=== PATIENT | female | born 1955 | race African-American/Black ===

== ENCOUNTER 2016-11-28 17:51 | Observation (INO) | payer MEDICARE, OTHER ==
--- NOTE | 2016-11-28 18:16 | ER Document Report ---
ED Allergic Reaction <LUIS EDUARDO HARRISON - Last Filed: 11/29/16 01:04> - General Mode of Arrival: Medic Information source: Patient, Emergency Med Personnel TRAVEL OUTSIDE OF THE [place] IN LAST 30 DAYS: No - HPI Onset: This afternoon Similar symptoms previously: Yes Recently seen / treated by doctor: No <DEVON MARTIN - Last Filed: 11/29/16 01:07> - General Chief Complaint: Allergic Reaction Stated Complaint: POSSIBLE ALLERGIC REACTION Time Seen by Provider: 11/28/16 18:05 Notes: Patient is a 61 year old female presenting to the emergency department for a possible allergic reaction. Patient has angioedema that was onset around 14:45 today. Patient was brought from Urgent care to the emergency department via EMS. Patient states that this has happened to her before. Patient complains of some pain to her mouth due to the swelling. Patient denies any throat swelling but states she feels like she is having some difficulty breathing. Patient has a history of autism and schizophrenia and nurse reports that the patient's speech is at baseline. Nurse reports the patient had this reaction previously from a schizophrenia medication. Patient denies having to be intubated or receive a tracheostomy from this reaction previously. Patient is a poor historian. According to the nurse the patient's symptoms have improved within the past 20 minutes since the patient arrived from EMS. Patient was at urgent care earlier today for her symptoms and received 0.5 epi IM, 25 mg Benadryl IM, and 10 mg Decadron IM. Patient additionally received 25 mg Benadryl and 20 mg Famotidine. Patient has caregivers that are on their way to the emergency department. Patient states she has no known allergies. (DEVON MARTIN) - Related Data Allergies/Adverse Reactions: No Known Allergies Allergy (Verified 06/03/14 10:32) Past Medical History - General Information source: [facility] Records - Social History Smoking Status: Never Smoker Cigarette use (# per day): No Chew tobacco use (# tins/day): No Smoking Education Provided: No Frequency of alcohol use: None Drug Abuse: None Family History: None Patient has suicidal ideation: No Patient has homicidal ideation: No - Past Medical History Cardiac Medical History: Reports: Hx Hypertension GI Medical History: Reports: Hx Gastroesophageal Reflux Disease, Hx Hepatitis - C Psychiatric Medical History: Reports: Hx Bipolar Disorder, Hx Depression, Hx Schizophrenia, Other - autism Infectious Medical History: Reports: Hx Hepatitis - C Past Surgical History: Reports: Hx Hysterectomy - Immunizations Hx Diphtheria, Pertussis, Tetanus Vaccination: Yes <DEVON MARTIN - Last Filed: 11/29/16 01:07> Review of Systems - Review of Systems EENT: See HPI, Other - facial edema. denies: Throat swelling Cardiovascular: denies: Chest pain Respiratory: denies: Short of breath Gastrointestinal: denies: Abdominal pain Musculoskeletal: See HPI Skin: See HPI Neurological/Psychological: See HPI <DEVON MARTIN - Last Filed: 11/29/16 01:07> Physical Exam <LUIS EDUARDO HARRISON - Last Filed: 11/29/16 01:04> <DEVON MARTIN - Last Filed: 11/29/16 01:07> - Vital signs Vitals: Resp 25 H 11/28/16 17:56 - Notes Notes: GENERAL: Alert, interacts well, pleasant, poor historian. Mild distress. HEAD: Normocephalic, atraumatic. EYES: Pupils equal, round, and reactive to light. Extraocular movements intact. Mild swelling under the eyes but none above the eyes. ENT: Oral mucosa moist, tongue midline, no swelling to the tongue or soft palate. Gross swelling of the lips, lower is worse than the upper lip. Nose has swelling. No evidence of airway obstruction. NECK: Full range of motion. Supple. Trachea midline. LUNGS: Clear to auscultation bilaterally, no wheezes, rales, or rhonchi. No respiratory distress. HEART: Regular rate and rhythm. No murmurs, gallops, or rubs. ABDOMEN: Soft, non-tender. Non-distended. Bowel sounds present in all 4 quadrants. EXTREMITIES: Moves all 4 extremities spontaneously. No edema. No cyanosis. NEUROLOGICAL: Alert. Normal speech. PSYCH: Normal affect, normal mood. SKIN: Warm, dry, normal turgor. (DEVON MARTIN) Course - Laboratory Result Diagrams: 11/28/16 21:48 11/28/16 21:48 <LUIS EDUARDO HARRISON - Last Filed: 11/29/16 01:04> - Laboratory Result Diagrams: 11/28/16 21:48 11/28/16 21:48 - Consults Dr. Acosta Time consulted: 20:15 <DEVON MARTIN - Last Filed: 11/29/16 01:07> - Re-evaluation Re-evalutation: 11/29/16 01:04 Dr. Acosta has now evaluated the patient agrees to accept the patient as an observation to his service in the [facility]. (LUIS EDUARDO HARRISON) 11/28/16 19:45 Re-evaluated patient at this time. Patient's upper lip is more swollen than previously during initial exam. Patient's caretakers state the patient appears to be much better than previously. They believe that this swelling is caused by the patient's fluphenazine injection she received last week. They state that when she had this reaction previously it took almost 1 week for the symptoms to be completely gone. 11/28/16 23:30 Re-evaluated patient at this time. Upper lip swelling has decreased and there is still no tongue swelling. (DEVON MARTIN) - Vital Signs Vital signs: Temp Pulse Resp BP Pulse Ox 97.9 F 77 20 163/89 H 97 11/28/16 23:05 11/28/16 18:03 11/28/16 23:16 11/28/16 23:16 11/28/16 23:16 - Laboratory Laboratory results interpreted by me: 11/28/16 11/28/16 21:48 21:48 Hgb 11.4 L Hct 33.4 L Seg Neutrophils % 92.3 H Lymphocytes % 6.7 L Monocytes % 0.8 L Absolute Lymphocytes 0.4 L Glucose 120 H - Consults Dr. Acosta Reason for consultation: 11/28/16 20:[address] Acosta for admission. 11/28/16 20:[address] Acosta, he is aware that this patient needs to be admitted but he will call back for details since he is working on admitting 2 critical patients at the moment. 11/28/16 23:[address] Acosta again for possible admission, he will call back. 11/28/16 23:[address] Acosta, he will come and evaluate the patient. There are currently no ICU beds and the patient may need transport if her condition worsens. 11/29/16 01:00 Dr. Acosta evaluated the patient and requests to admit the patient to [facility] observation. (DEVON MARTIN) Critical Care Note - Critical Care Note Total time excluding time spent on procedures (mins): 45 <LUIS EDUARDO HARRISON - Last Filed: 11/29/16 01:04> Discharge - Discharge [facility] Unit Admitted: IMCU <LUIS EDUARDO HARRISON - Last Filed: 11/29/16 01:04> <DEVON MARTIN - Last Filed: 11/29/16 01:07> - Discharge Clinical Impression: Autism Angioedema of lips Qualifiers: Encounter type: initial encounter Qualified Code(s): T78.3XXA - Angioneurotic edema, initial encounter Hypertension Qualifiers: Hypertension type: essential hypertension Qualified Code(s): I10 - Essential ( primary) hypertension Schizophrenia Qualifiers: Schizophrenia type: unspecified Qualified Code(s): F20.9 - Schizophrenia, unspecified Disposition: ADMITTED OBSERVATION Referrals: MARK KHAN MD [Primary Care Provider] - Follow up as needed Scribe Attestation: 11/29/16 01:06 I personally performed the services described in the documentation, reviewed and edited the documentation which was dictated to the scribe in my presence, and it accurately records my words and actions. (LUIS EDUARDO HARRISON) Scribe Documentation - Scribe Written by Domenico:: Domenico Collins 11/28/2016 18:44 acting as scribe for :: Noel <DEVON MARTIN - Last Filed: 11/29/16 01:07>
[2016-11-28] MEDS ORDERED: NORMAL SALINE 250 ML IV PRN (18:45)
[2016-11-28] MEDS ORDERED: DIPHENHYDRAMINE HCL 50 MG/ML VIAL IV ONE (20:14)
[2016-11-28] MEDS ORDERED: METHYLPREDNISOLONE INJ 125 MG/2 ML SDV IV ONE (20:15)
[2016-11-28 21:58] LABS: ABSOLUTE LYMPHOCYTES (AUTO) 0.4 10^3/uL (0.5-4.7); ABSOLUTE MONOCYTES (AUTO) 0.1 10^3/uL (0.1-1.4); BASOPHILS % (AUTO) 0.2 % (0-2); HEMATOCRIT 33.4 % (36.0-47.0); HEMOGLOBIN 11.4 g/dL (12.0-15.5); HGB HCT DIFFERENCE 0.8; LYMPHOCYTES % (AUTO) 6.7 % (13-45); MEAN CORPUSCULAR HEMOGLOBIN 30.8 pg (27.0-33.4); MEAN CORPUSCULAR HGB CONC 34.3 g/dL (32.0-36.0); MEAN CORPUSCULAR VOLUME 90 fl (80-97); MONOCYTES % (AUTO) 0.8 % (3-13); RED BLOOD COUNT 3.72 10^6/uL (3.72-5.28); RED CELL DISTRIBUTION WIDTH 13.4 % (11.5-14.0); SEGMENTED NEUTROPHILS % (AUTO) 92.3 % (42-78); WHITE BLOOD COUNT 6.5 10^3/uL (4.0-10.5)
[2016-11-28 22:15] LABS: ALANINE AMINOTRANSFERASE 32 U/L (9-52); ALBUMIN 3.8 g/dL (3.5-5.0); ALKALINE PHOSPHATASE 75 U/L (38-126); ANION GAP 10 (5-19); ASPARTATE AMINO TRANSFERASE 35 U/L (14-36); BILIRUBIN,DIRECT 0.4 mg/dL (0.0-0.4); BILIRUBIN,TOTAL 0.4 mg/dL (0.2-1.3); BLOOD UREA NITROGEN 12 mg/dL (7-20); CALCIUM 9.4 mg/dL (8.4-10.2); CARBON DIOXIDE 27 mmol/L (22-30); CHLORIDE 102 mmol/L (98-107); CREATININE RESULT 0.83 mg/dL (0.52-1.25); GLUCOSE 120 mg/dL (75-110); POTASSIUM 3.8 mmol/L (3.6-5.0); SODIUM 139.4 mmol/L (137-145); TOTAL PROTEIN 7.2 g/dL (6.3-8.2)
[2016-11-29] MEDS ORDERED: GLUCAGON,HUMAN RECOMB 1 MG INJ IM PRN (01:26)
[2016-11-29] MEDS ORDERED: DEXTROSE 50%-WATER 25 GM/50 ML DISP.SYRIN IV PRN ×2 (01:26)
[2016-11-29] MEDS ORDERED: ACETAMINOPHEN 325 MG TABLET PO PRN (01:26)
[2016-11-29] MEDS ORDERED: DEXTROSE 40% GEL 15 GM TUBE PO PRN ×2 (01:26)
[2016-11-29] MEDS ORDERED: PROMETHAZINE HCL INJ 25 MG/1 ML VIAL IV PRN (01:33)
--- NOTE | 2016-11-29 01:57 | PDOC H&P ---
History of Present Illness Admission Date/PCP: 11/29/16 01:16 MARK KHAN MD Patient complains of: Swelling of lips History of Present Illness: RIDDHI FORTUNE is a 61 year old -[place] female with reportedly underlying hypertension, functioning autism, bipolar disorder, schizophrenia, and hepatitis C who presents to the emergency room for above complaint. Patient has been discussed with emergency room physician who evaluated the patient. Patient is pleasant and cooperative, mildly anxious, but is able to provide no history whatsoever in terms of acute or chronic events, review of systems, personal habits, family history, etc. No friends or family are present. No old inpatient records available for review. 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 According to emergency room records, shortly before 3 PM on the , patient was observed to have swelling of her lips. Was complaining at that time of some pain in her mouth due to the swelling, but now denies any pain. Also was complaining of some difficulty breathing at that time. Was taken to a local urgent care center, given medications there, and transported by EMS to our emergency room. This is reportedly her second episode of angioedema, with the first episode felt secondary to her fluphenazine; last dose was reportedly approximately a week ago. Initially some slight decrease in swelling of her upper lip along with resolution of her very mild periorbital edema, with subsequent slight recurrence of mild upper lip swelling. No change in the lower lip swelling. No difficulty swallowing or respiratory distress. No tongue or other intraoral swelling. According to emergency room nurse Alondra, who has been taking care of the patient tonight, the very mild periorbital edema has resolved, with some decrease in upper lip swelling and again no change in lower lip swelling. Please refer to ER notes concerning medications given in urgent care, by EMS, and here in our emergency room. Dictation via voice recognition software. Laboratory results are listed in [facility] and are reviewed. 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 No further information available this point in time. No known drug allergies. Home medications initially autopopulated into [facility] [employer] may not accurately reflect patient's true medications, dosages, and/or frequencies. mammography technologist to reconcile medications. Unfortunately, patient not able to provide any information relating to medications/dosages/frequencies. REVIEW OF SYSTEMS: See history and present illness. No further information available this point in time. PHYSICAL EXAMINATION: 65.6 kg. Height is not recorded on the chart. Blood pressure 154/81. Pulse 66 and regular. 98% saturation on room air. Respirations are 20 and unlabored. Temperature 97.9. Well-nourished well-developed -[place] female who appears a fair number of years younger than her stated age. Pleasant awake alert and cooperative. Mildly anxious, without agitation. Her emergency room nurse Alondra is present. Skin is warm and dry. No grossly obvious evidence of rash in areas of skin examined. No subcutaneous nodules palpated. ENT: Hearing grossly normal to normal conversation. Tongue midline on protrusion pink and slightly moist. No evidence of swelling of tongue or intraoral cavity, including posterior pharynx. No difficulty swallowing saliva. Mild swelling of her upper lip, a bit more moderate with the lower lip. See comments in history of present illness concerning changes noted by ER staff. Eyes: No scleral icterus. Pupils equal and reactive to light at 5 mm. Franquez conjunctivae. Perhaps very scant right lateral periorbital edema; otherwise, none noted. Neck is supple and nontender to gentle active range of motion and palpation. Midline trachea. No palpable thyroid nodule mass enlargement or tenderness. Lymphatic: No palpable cervical or clavicular nodes. Neck and lymphatic exams limited by patient body habitus. Psychiatric: Cannot be adequately evaluated due to her status; See history and present illness. Lungs: Auscultation reveals clear and equal breath sounds bilaterally. No use of accessory respiratory muscles. Cardiovascular: Heart regular rate and rhythm, without gallop murmur or rub. No carotid or abdominal aortic bruits. No ankle or pedal edema. Palpable dorsalis pedis pulses. Abdomen:soft slightly distended nontender with positive bowel sounds. Unable to adequately evaluate abdomen for masses or organomegaly due to distention. Extremities: Feet are warm and dry. No calf tenderness to compression. No grossly obvious visual evidence of calf swelling. Gentle manipulation of lower extremities fails to reveal any obvious evidence of injury or instability to knees hips or ankles. Neurologic: Moves upper extremities grossly normally. Patellar reflexes absent. Absent Babinski. Light touch can't be adequately evaluated due to her mental status. Dorsiflexion and plantarflexion of feet 5 / 5 and symmetric. Past Medical History Past Medical History: Information from ER staff and current records; patient cannot provide any information herself. Cardiac Medical History: Reports: Hypertension GI Medical History: Reports: Gastroesophageal Reflux Disease Psychiatric Medical History: Reports: Bipolar Disorder, Depression, Other - autism; schizophrenia Infectious Medical History: Reports: Hepatitis C Past Surgical History Past Surgical History: Information from ER staff and current records; patient cannot provide any information herself. Past Surgical History: Reports: Hysterectomy Social History Information Source: Emergency Med Personnel, [facility] Records Smoking Status: Unknown if Ever Smoked - Advance Directive Resuscitation Status: Full Code Surrogate healthcare decision maker:: Uncertain at this time; possibly her guardian Family History Family History: None Parental Family History Reviewed: No - Patient cannot provide any information related to same. Children Family History Reviewed: No - Patient cannot provide any information related to same. Sibling(s) Family History Reviewed.: No - Patient cannot provide any information related to same. Medication/Allergy Home Medications: Benztropine Mesylate [Benztropine Mesylate 2 mg Tablet] 2 mg PO Q12 11/29/16 Citalopram Hydrobromide [Celexa 20 mg Tablet] 40 mg PO DAILY 11/29/16 Fluphenazine HCl 5 mg PO Q12 11/29/16 Omeprazole 40 mg PO DAILY 11/29/16 Diphenhydramine HCl [Benadryl] 25 mg PO Q6H PRN #30 capsule 11/30/16 Methylprednisolone [Medrol Dosepack (4 mg/Tab) 21 Tab/Dosepak] 4 mg PO ASDIR PRN #21 tab.ds.pk 11/30/16 Allergies/Adverse Reactions: No Known Allergies Allergy (Verified 06/03/14 10:32) Physical Exam Vital Signs: Temp Pulse Resp BP Pulse Ox 97.9 F 77 30 H 161/84 H 95 11/28/16 23:05 11/28/16 18:03 11/29/16 01:01 11/29/16 01:01 11/29/16 01:01 Assessment & Plan - Diagnosis (1) Anemia Qualifiers: Anemia type: unspecified type Qualified Code(s): D64.9 - Anemia, unspecified Is this a current diagnosis for this admission?: Yes Plan: No need for transfusion at present time. (2) Angioedema of lips Qualifiers: Encounter type: initial encounter Qualified Code(s): T78.3XXA - Angioneurotic edema, initial encounter Is this a current diagnosis for this admission?: Yes Plan: Supportive care present. N.p.o. other than oral medications with sips of water. Elevate head of bed at least 60. Order entered into chart for staff to notify physician immediately for any increasing lip swelling, respiratory distress, and/or difficulty swallowing. I have strongly encouraged patient not to get out of bed without notifying staff , to avoid a fall with injury. Knee high SCDs for DVT prophylaxis, along with subcutaneous Lovenox. Plans were discussed with patient, who concurs. Time spent in evaluation and management of patient: 56 minutes. (3) Autism Is this a current diagnosis for this admission?: Yes Plan: Resume home medications as appropriate once these have been determined and reviewed. (4) Bipolar disorder Qualifiers: Active/Remission status: remission status unspecified Qualified Code(s): F31.9 - Bipolar disorder, unspecified Is this a current diagnosis for this admission?: Yes Plan: Resume home medications as appropriate once these have been determined and reviewed. (5) Hypertension Qualifiers: Hypertension type: essential hypertension Qualified Code(s): I10 - Essential (primary) hypertension Is this a current diagnosis for this admission?: Yes Plan: Resume home medications as appropriate once these have been determined and reviewed. (6) Schizophrenia Qualifiers: Schizophrenia type: unspecified Qualified Code(s): F20.9 - Schizophrenia, unspecified Is this a current diagnosis for this admission?: Yes Plan: Resume home medications as appropriate once these have been determined and reviewed. - Time Time Spent: 50 to 70 Minutes Anticipated discharge: Home Within: within 48 hours
[2016-11-29] MEDS: RINGERS SOLUTION,LACTATED 1,000 ML IV PRN ×2 (05:45→22:22)
[2016-11-29] MEDS ORDERED: DOCUSATE SODIUM 100 MG/10 ML UDC PO SCH (10:00)
[2016-11-29] MEDS: ENOXAPARIN SODIUM INJ 40 MG/0.4 ML DISP.SYRIN SUBCUT SCH (10:52)
[2016-11-29] MEDS ORDERED: CITALOPRAM HYDROBROMIDE 20 MG TABLET PO ONE (13:00)
[2016-11-29] MEDS ORDERED: PREDNISONE 20 MG TABLET PO ONE (13:00)
[2016-11-29] MEDS: DIPHENHYDRAMINE HCL 50 MG CAPSULE PO SCH ×3 (13:47→23:40)
[2016-11-29] MEDS ORDERED: (PENDING PHARMACY ID) (Benztropine Mesylate [Benztropine Mesylate 2 Mg Tablet] 2 MG) PO SCH (22:00)
[2016-11-29] MEDS ORDERED: FLUPHENAZINE HCL 5 MG PO SCH (22:00)
[2016-11-29] MEDS: BENZTROPINE MESYLATE 1 MG TABLET PO SCH (22:10)
[2016-11-29] MEDS: FLUPHENAZINE HCL 2.5 MG TABLET PO SCH (22:11)
[2016-11-30] MEDS: DIPHENHYDRAMINE HCL 50 MG CAPSULE PO SCH (05:40)
[2016-11-30] MEDS: RINGERS SOLUTION,LACTATED 1,000 ML IV PRN (08:32)
[2016-11-30] MEDS: BENZTROPINE MESYLATE 1 MG TABLET PO SCH (09:42)
[2016-11-30] MEDS: ENOXAPARIN SODIUM INJ 40 MG/0.4 ML DISP.SYRIN SUBCUT SCH (09:44)
[2016-11-30] MEDS: FLUPHENAZINE HCL 2.5 MG TABLET PO SCH (09:44)
--- NOTE | 2016-11-30 09:54 | PDOC DISCHARGE SUMMARY ---
General - Admit/Disc Date/PCP Admission Date/Primary Care Provider: 11/29/16 01:26 MARK KHAN MD Discharge Date: 11/30/16 - Discharge Diagnosis (1) Anemia Is this a current diagnosis for this admission?: Yes (2) Angioedema of lips Is this a current diagnosis for this admission?: Yes (3) Bipolar disorder Is this a current diagnosis for this admission?: Yes (4) Schizophrenia Is this a current diagnosis for this admission?: Yes - Additional Information Resuscitation Status: Full Code Discharge Activity: Activity As Tolerated, Balance Activity w/Rest Home Medications: Benztropine Mesylate [Benztropine Mesylate 2 mg Tablet] 2 mg PO Q12 11/29/16 Citalopram Hydrobromide [Celexa 20 mg Tablet] 40 mg PO DAILY 11/29/16 Fluphenazine HCl 5 mg PO Q12 11/29/16 Omeprazole 40 mg PO DAILY 11/29/16 Diphenhydramine HCl [Benadryl] 25 mg PO Q6H PRN #30 capsule 11/30/16 Methylprednisolone [Medrol Dosepack (4 mg/Tab) 21 Tab/Dosepak] 4 mg PO ASDIR PRN #21 tab.ds.pk 11/30/16 Additional Information: Return to the emergency room if symptoms recur. Avoid [id number] nonsteroidal anti-inflammatory medications. History of Present Illness Patient complains of: Swelling of the lips. History of Present Illness: KIRK FORTUNE is a 61 year old -[place] female with reportedly underlying hypertension, functioning autism, bipolar disorder, schizophrenia, and hepatitis C who presents to the emergency room for above complaint. Patient has been discussed with emergency room physician who evaluated the patient. Patient is pleasant and cooperative, mildly anxious, but is able to provide no history whatsoever in terms of acute or chronic events, review of systems, personal habits, family history, etc. No friends or family are present. No old inpatient records available for review. 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 According to emergency room records, shortly before 3 PM on the , patient was observed to have swelling of her lips. Was complaining at that time of some pain in her mouth due to the swelling, but now denies any pain. Also was complaining of some difficulty breathing at that time. Was taken to a local urgent care center, given medications there, and transported by EMS to our emergency room. This is reportedly her second episode of angioedema, with the first episode felt secondary to her fluphenazine; last dose was reportedly approximately a week ago. Initially some slight decrease in swelling of her upper lip along with resolution of her very mild periorbital edema, with subsequent slight recurrence of mild upper lip swelling. No change in the lower lip swelling. No difficulty swallowing or respiratory distress. No tongue or other intraoral swelling. According to emergency room nurse Alondra, who has been taking care of the patient tonight, the very mild periorbital edema has resolved, with some decrease in upper lip swelling and again no change in lower lip swelling. Please refer to ER notes concerning medications given in urgent care, by EMS, and here in our emergency room. For details please refer to history and physical examination performed by the admitting physician. Hospital Course Hospital Course: The patient was admitted to telemetry. The patient was given fluids, fresh frozen plasma was likewise given in the emergency room. Recent started on steroids and antihistamines. Her symptomatologies eventually resolved. She was resumed back on her home medications, they were reviewed for angioedema but existing medications on record unlikely the cause. She was advised to avoid [id number] nonsteroidal anti-inflammatory medications. The rest of the hospital stays unremarkable. Physical Exam Vital Signs: Temp Pulse Resp BP Pulse Ox 98.0 F 79 18 161/85 H 96 11/30/16 07:20 11/30/16 07:20 11/30/16 07:20 11/30/16 07:20 11/30/16 07:20 Intake & Output 11/29/16 11/30/16 12/01/16 06:59 06:59 06:59 Intake Total 225 2259 Output Total 500 Balance 225 1759 Weight 64.3 kg General appearance: PRESENT: no acute distress, cooperative Head exam: PRESENT: normocephalic Eye exam: PRESENT: EOMI Mouth exam: PRESENT: moist, neck supple Neck exam: ABSENT: JVD Respiratory exam: PRESENT: clear to auscultation maximo. ABSENT: rhonchi, wheezes Cardiovascular exam: PRESENT: RRR. ABSENT: gallop GI/Abdominal exam: PRESENT: normal bowel sounds, soft. ABSENT: distended Extremities exam: ABSENT: pedal edema Neurological exam: PRESENT: alert, awake, oriented to situation Skin exam: PRESENT: dry, warm. ABSENT: cyanosis Qualifiers PATEINT BEING DISCHARGED WITH ANY OF THE FOLLOWING DIAGNOSIS?: No Plan Discharge Plan: Follow-up with primary care physician in 1 week. Time Spent: Less than 30 Minutes
[2016-11-30] MEDS ORDERED: CITALOPRAM HYDROBROMIDE 20 MG TABLET PO SCH (10:00)
[2016-11-30] MEDS ORDERED: PREDNISONE 20 MG TABLET PO SCH (10:00)
[2016-11-30] MEDS ORDERED: LANSOPRAZOLE 30 MG TAB.RAP.DR PO SCH (10:00)
[2016-11-30 10:52] VITALS: BP 150/78
== END 2016-11-30 12:00 | disposition home or self-care (01) ==
LOC: ER 17:51 → UNDOADMOB 11-29 01:16 → EH 11-29 01:16 → 3W 11-29 02:55
PROVIDERS: ADMIT Family Medicine; ATTEND Family Medicine
DX: T78.3XXA Angioneurotic edema, initial encounter (principal); D64.9 Anemia, unspecified; F31.9 Bipolar disorder, unspecified; F20.9 Schizophrenia, unspecified; F84.0 Autistic disorder; I10 Essential (primary) hypertension; B19.20 Unspecified viral hepatitis C without hepatic coma; K21.9 Gastro-esophageal reflux disease without esophagitis; Z79.899 Other long term (current) drug therapy; Z90.710 Acquired absence of both cervix and uterus
CPT/HCPCS: 99291; 96374; 96375; 86900; 86901; 36415; 36430; 82962; 85025; 80053; G0378 ×3; P9017; A9270 ×11; J1200; J2930; J1650 ×2; J2550; J3490 ×2; J7120 ×2; J7512

== ENCOUNTER 2017-01-31 11:36 | Emergency (ER) | payer MEDICARE, OTHER ==
[2017-01-31 11:43] VITALS: BP 146/90
[2017-01-31] MEDS ORDERED: FAMOTIDINE INJ/PF 20 MG/2 ML SDV IV ONE (12:26)
[2017-01-31] MEDS ORDERED: DIPHENHYDRAMINE HCL 50 MG/ML VIAL IV ONE (12:26)
[2017-01-31] MEDS ORDERED: METHYLPREDNISOLONE INJ 125 MG/2 ML SDV IV ONE (12:26)
[2017-01-31 12:52] LABS: ABSOLUTE EOSINOPHILS # (AUTO) 0.2 10^3/uL (0.0-0.6); ABSOLUTE NEUT (AUTO) 8.1 10^3/uL (1.7-8.2); BASOPHILS % (AUTO) 0.4 % (0-2); EOSINOPHILS % (AUTO) 1.6 % (0-6); HEMATOCRIT 37.9 % (36.0-47.0); HEMOGLOBIN 12.4 g/dL (12.0-15.5); HGB HCT DIFFERENCE -0.7; LYMPHOCYTES % (AUTO) 24.5 % (13-45); MEAN CORPUSCULAR HEMOGLOBIN 29.6 pg (27.0-33.4); MEAN CORPUSCULAR HGB CONC 32.8 g/dL (32.0-36.0); MEAN CORPUSCULAR VOLUME 90 fl (80-97); MONOCYTES % (AUTO) 7.7 % (3-13); RED CELL DISTRIBUTION WIDTH 13.1 % (11.5-14.0); SEGMENTED NEUTROPHILS % (AUTO) 65.8 % (42-78); WHITE BLOOD COUNT 12.4 10^3/uL (4.0-10.5)
[2017-01-31 13:18] LABS: ALANINE AMINOTRANSFERASE 39 U/L (9-52); ALBUMIN 3.9 g/dL (3.5-5.0); ALKALINE PHOSPHATASE 70 U/L (38-126); ANION GAP 12 (5-19); ASPARTATE AMINO TRANSFERASE 35 U/L (14-36); BILIRUBIN,DIRECT 0.5 mg/dL (0.0-0.4); BILIRUBIN,TOTAL 0.8 mg/dL (0.2-1.3); BLOOD UREA NITROGEN 11 mg/dL (7-20); CALCIUM 9.5 mg/dL (8.4-10.2); CARBON DIOXIDE 28 mmol/L (22-30); CHLORIDE 102 mmol/L (98-107); CREATININE RESULT 0.91 mg/dL (0.52-1.25); GLUCOSE 107 mg/dL (75-110); SODIUM 141.8 mmol/L (137-145); TOTAL PROTEIN 7.4 g/dL (6.3-8.2)
--- NOTE | 2017-01-31 13:39 | ER Document Report ---
ED Eye Complaint - General Chief Complaint: Eye Problem Stated Complaint: EYE PROBLEM Time Seen by Provider: 01/31/17 11:56 Mode of Arrival: Ambulatory Information source: Patient, Legal Guardian Notes: 61-year-old female presented to ED for right eye swelling to the upper eyelid. There is no redness or pain to the eye itself. Caregiver states that there are 2 sore areas on her head that were started out as "hair knots "and she is picked of them making them sore. Patient has had intermittent swelling to her eyes face and lips throughout the past 6 weeks while she has been on a new medication. Caregiver states that they have asked the mental health worker to stop the Prolixin injections is every time she gets 1 of these she swells and another area. She states she has been on the p.o. medication and is never had a problem. She states she got her last IM injection on 01/25/2017 TRAVEL OUTSIDE OF THE [place] IN LAST 30 DAYS: No - HPI Onset: This morning - She states she has had several areas that are swollen like this in the past Eye location: Right Injury: No Quality of pain: No pain Severity: None Pain Level: Denies Associated symptoms: Eyelid swelling - Related Data Allergies/Adverse Reactions: No Known Allergies Allergy (Verified 06/03/14 10:32) Past Medical History - General Information source: Legal Guardian - Social History Smoking Status: Never Smoker Cigarette use (# per day): No Chew tobacco use (# tins/day): No Smoking Education Provided: No Frequency of alcohol use: None Drug Abuse: None Lives with: Family Family History: None Patient has suicidal ideation: No Patient has homicidal ideation: No - Past Medical History Cardiac Medical History: Reports: Hx Hypertension Pulmonary Medical History: Reports: None EENT Medical History: Reports: None Neurological Medical History: Reports: None Endocrine Medical History: Reports: None Renal/ Medical History: Reports: None Malignancy Medical History: Reports: None GI Medical History: Reports: Hx Gastroesophageal Reflux Disease, Hx Hepatitis - C Musculoskeltal Medical History: Reports None Skin Medical History: Reports None Psychiatric Medical History: Reports: Hx Bipolar Disorder, Hx Depression, Hx Schizophrenia Traumatic Medical History: Reports: None Infectious Medical History: Reports: Hx Hepatitis - C Past Surgical History: Reports: Hx Hysterectomy - Immunizations Hx Diphtheria, Pertussis, Tetanus Vaccination: Yes Review of Systems - Review of Systems Constitutional: No symptoms reported EENT: Other - Eyelid swelling to the right upper eyelid. denies: Eye pain, Eye discharge Cardiovascular: No symptoms reported Respiratory: No symptoms reported Gastrointestinal: No symptoms reported Genitourinary: No symptoms reported Female Genitourinary: No symptoms reported Musculoskeletal: No symptoms reported Skin: Other - Scabbed fungal appearing area to the right scalp 2 Hematologic/Lymphatic: No symptoms reported Neurological/Psychological: No symptoms reported Physical Exam - Vital signs Vitals: Temp Pulse Resp BP Pulse Ox 98.8 F 94 18 146/90 H 96 01/31/17 11:38 01/31/17 11:38 01/31/17 11:38 01/31/17 11:38 01/31/17 11:38 Interpretation: Normal - General General appearance: Appears well, Alert - HEENT Head: Normocephalic, Atraumatic Eyes: Other - Right eyelid swelling Conjunctiva: Normal Cornea: Normal Eyelashes: Normal Pupils: PERRL Ears: Normal External canal: Normal Tympanic membrane: Normal Sinus: Normal Nasal: Normal Mouth/Lips: Normal Mucous membranes: Normal Pharynx: Normal Neck: Normal - Respiratory Respiratory status: No respiratory distress Chest status: Nontender Breath sounds: Normal Chest palpation: Normal - Cardiovascular Rhythm: Regular Heart sounds: Normal auscultation Murmur: No - Abdominal Inspection: Normal Distension: No distension Bowel sounds: Normal Tenderness: Nontender Organomegaly: No organomegaly - Back Back: Normal, Nontender - Extremities General upper extremity: Normal inspection, Nontender, Normal color, Normal ROM , Normal temperature General lower extremity: Normal inspection, Nontender, Normal color, Normal ROM , Normal temperature, Normal weight bearing. No: Bk's sign - Neurological Neuro grossly intact: Yes Cognition: Normal Orientation: AAOx4 Hull Coma Scale Eye Opening: Spontaneous Hull Coma Scale Verbal: Oriented Wallace Coma Scale Motor: Obeys Commands Wallace Coma Scale Total: 15 Speech: Normal Motor strength normal: LUE, RUE, LLE, RLE Sensory: Normal - Psychological Associated symptoms: Normal affect, Normal mood - Skin Skin Temperature: Warm Skin Moisture: Dry Skin Color: Normal Location of irregularity: Scalp - 2 scaly scabby sore areas to the right scalp Irregularity with: Tenderness Course - Re-evaluation Re-evalutation: 01/31/17 16:08 Patient was treated with Solu-Medrol, Pepcid, and Benadryl IV and discharged home on Pepcid and prednisone for her swelling to the right eyelid. Patient is caregiver states that this is the third and fourth time this is happened after she gets a injection of Prolixin. - Vital Signs Vital signs: Temp Pulse Resp BP Pulse Ox 98.8 F 94 18 146/90 H 96 01/31/17 11:38 01/31/17 11:38 01/31/17 11:38 01/31/17 11:38 01/31/17 11:38 - Laboratory Result Diagrams: 01/31/17 12:41 01/31/17 12:41 Laboratory results interpreted by me: 01/31/17 01/31/17 12:41 12:41 WBC 12.4 H Direct Bilirubin 0.5 H Discharge - Discharge Clinical Impression: Periorbital swelling to right eye Condition: Stable Disposition: HOME, SELF-CARE Additional Instructions: ACUTE ALLERGIC REACTION: Your symptoms are due to an allergic reaction. Allergy can cause hives, swelling of the hands, feet, and face, hoarseness, and difficulty swallowing or breathing. It may be due to exposure to medication, animal dander, foods, infection, or insect bites. Medication is a common cause, even when prior use of this same medication caused no problems. Acute treatment may include adrenalin and antihistamines. Usually, the specific allergic agent can't be identified unless repeated episodes occur. Home treatment includes the following: (1) Stop any suspicious medications. This will be discussed with you. (2) Oral antihistamines for the next four to five days. Example, diphenhydramine (Benadryl) every four hours. (3) You may also use cimetidine (Tagamet), ranitidine (Zantac), or famotidine ( Pepcid) every four hours if diphenhydramine is not controlling itching and hives. (4) Avoid aspirin until the hives completely disappear. (5) Avoid hot baths or showers until the hives are completely gone. Call the doctor if faintness, difficulty swallowing, tightness in the chest , or wheezing occurs. STEROID MEDICATION INJECTION: You have been given an injection of medicine of the cortisone/steroid class. This medication is used to control inflammation or allergy. It is often continued as a pill for a short period of time, until the acute process subsides. There are usually no side effects from short-term use of cortisone-like medications. Some persons feel an increased sense of well-being and are not sleepy at bedtime. Long-term use of cortisone medications is best avoided, unless required for a severe condition. If your condition does not remit, or relapses after the course of corticosteroid medication, you should consult your physician. STEROID MEDICATION: You have been given a medicine of the cortisone/steroid class. This medication is used to control inflammation or allergy. It is usually only given for a short period of time, until the acute process subsides. There are usually no side effects from short-term use of cortisone-like medications. Some persons feel an increased sense of well-being and are not sleepy at bedtime. Long-term use of cortisone medications is best avoided, unless required for a severe condition. If your condition does not remit, or relapses after the course of corticosteroid medication, you should consult your physician. ACID-SUPPRESSING MEDICATION: You have a prescription for medicine which reduces the stomach's secretion of acid. Examples include Zantac, Tagament, and Pepcid. These drugs are often used to allow healing of ulcers or esophagitis. They may be needed to prevent recurrence of ulcers in some patients, or to prevent damage from acid reflux in the esophagus. Take all medication as prescribed, even after the pain is gone. Regular antacids may be added as needed if you have symptoms while taking this medicine. These medications sometimes are prescribed for allergic reactions because they have anti-histaminic effects and relieve the rash and itching of the reaction. There are usually no side effects from this medication. But, in rare cases and particularly in the elderly, serious problems can occur. Contact your doctor if there is fever, rash, hallucinations, confusion, or unusual bruising. Contact your doctor at once if you develop lightheadedness, black or bloody stool, or bloody vomitus. USE OF DIPHENHYDRAMINE: The use of diphenhydramine (Benadryl) has been recommended to control allergic symptoms. The 25 mg strength is available over- the-counter, as well as the elixir. This antihistamine is used for many symptoms. It's useful for itching, watering eyes and nose, allergic swelling, hives, and insect stings. The medication can be repeated four times daily. Age Elixir (12.5 mg/tsp) 25 mg pill 2-3 yr 1/2 tsp 4-8 yr 1 tsp 9-14 yr 2 tsp one tab adult 1-2 tabs Antihistamines may cause drowsiness, especially with the first dose. Do not operate machinery or drive while under the effects of the medication. Do not combine the medication with alcohol, or with any other medication without talking to your doctor. Please use Selsun Blue shampoo to your hair for the fungal infection in your higher. I have given you the information on the griseofulvin for you to take to your primary doctor if the Selsun Blue does not clear up the fungus. I have also drawn the pre-labs for him to use for monitoring your liver. Please complete the prednisone as prescribed and follow-up with your primary doctor. Please call your mental health worker and have her stop the prolixin if this continues to happen. FOLLOW-UP CARE: If you have been referred to a physician for follow-up care, call the physician s office for an appointment as you were instructed or within the next two days. If you experience worsening or a significant change in your symptoms, notify the physician immediately or return to the Emergency Department at any time for re-evaluation. Prescriptions: Famotidine [Pepcid 20 mg Tablet] 20 mg PO DAILY #12 tablet Prednisone [Deltasone 10 mg Tablet] 10 mg PO ASDIR PRN #21 tablet PRN Reason: Forms: Elevated Blood Pressure Referrals: MARK KHAN MD [Primary Care Provider] - Follow up as needed
== END 2017-01-31 14:18 | disposition home or self-care (01) ==
LOC: ER 11:36
DX: R22.0 Localized swelling, mass and lump, head (principal); Z79.899 Other long term (current) drug therapy
CPT/HCPCS: 99283; 96374; 96375; 36415; 85025; 80053; J1200; J2930; S0028

== ENCOUNTER 2017-03-05 08:50 | Emergency (ER) | payer MEDICARE, OTHER ==
[2017-03-05] MEDS ORDERED: METHYLPREDNISOLONE INJ 125 MG/2 ML SDV IV ONE (09:06)
[2017-03-05] MEDS ORDERED: DIPHENHYDRAMINE HCL 50 MG/ML VIAL IV ONE (09:06)
[2017-03-05] MEDS ORDERED: FAMOTIDINE INJ/PF 20 MG/2 ML SDV IV ONE (09:07)
[2017-03-05] MEDS ORDERED: EPINEPHRINE INJ/PF 1 MG/1 ML AMPULE SUBCUT PRN (09:08)
--- NOTE | 2017-03-05 10:39 | ER Document Report ---
ED Allergic Reaction - General TRAVEL OUTSIDE OF THE [place] IN LAST 30 DAYS: No - General Chief Complaint: Allergic Reaction Stated Complaint: LIP SWELLING Time Seen by Provider: 03/05/17 09:05 Notes: Patient is here because she is having swelling of her lower lip which began this morning. She has had this 3 times in the recent past (since May) and this is her fourth visit for the same. She is not on any current MADDY inhibitor for her blood pressure. Patient is here with her legal guardian and she thinks that the patient has the swelling of her lip due to a shot/injection of psychiatric medication that she gets from [facility] every 2 weeks. It seems that she has the swelling after she is received that injection of medication. She last received that medication about 1 week ago. Patient has no complaints. No apparent difficulty swallowing. No difficulty breathing. No rash. No swelling elsewhere. Patient has a history of bipolar disorder and schizophrenia and has a legal guardian who is here with her today. (RENNY SANCHEZ) - Related Data Allergies/Adverse Reactions: No Known Allergies Allergy (Verified 03/05/17 09:09) Home Medications: Current Home Medications Fluphenazine Decanoate 37.5 mg IJ [id number] 03/05/17 [History] Past Medical History - Social History Smoking Status: Never Smoker Frequency of alcohol use: None Drug Abuse: None Family History: None, Reviewed & Not Pertinent Patient has suicidal ideation: No Patient has homicidal ideation: No - Past Medical History Cardiac Medical History: Reports: Hx Hypertension GI Medical History: Reports: Hx Gastroesophageal Reflux Disease, Hx Hepatitis - C Psychiatric Medical History: Reports: Hx Bipolar Disorder, Hx Depression, Hx Schizophrenia Infectious Medical History: Reports: Hx Hepatitis - C Past Surgical History: Reports: Hx Hysterectomy - Immunizations Hx Diphtheria, Pertussis, Tetanus Vaccination: Yes Review of Systems - Review of Systems -: Yes ROS unobtainable due to patient's medical condition - Review of Systems Notes: Review of systems from legal guardian: REVIEW OF SYSTEMS: CONSTITUTIONAL : Denies fever. EENT: Denies eye, ear, nose or throat pain or other symptoms. No intraoral mucous membrane swelling. See HPI regarding swelling lips. CARDIOVASCULAR: Denies chest pain. RESPIRATORY: Denies cough, chest congestion, or shortness of breath. GASTROINTESTINAL: Denies abdominal pain or nausea, vomiting, or diarrhea. GENITOURINARY: Denies difficulty or painful urinating, urinary frequency, blood in urine. MUSCULOSKELETAL: Denies back or neck pain. Denies joint pain or swelling. SKIN: Denies rash or skin lesions. NEUROLOGICAL: Denies LOC or altered mental status. Denies headache. Denies sensory loss or motor deficits. ALL OTHER SYSTEMS REVIEWED AND NEGATIVE. (RENNY SANCHEZ) Physical Exam - Vital signs Interpretation: Normal - Vital signs Vitals: Temp Pulse Resp BP Pulse Ox 98.4 F 84 28 H 152/96 H 93 03/05/17 08:56 03/05/17 08:56 03/05/17 08:56 03/05/17 08:56 03/05/17 08:56 - Notes Notes: PHYSICAL EXAMINATION: GENERAL: Well-appearing, vital signs are normal. Very notable left lower lip edema. Ambulatory. HEAD: Atraumatic, normocephalic. EYES: Pupils equal round and reactive to light, extraocular movements intact. ENT: oropharynx clear without exudates. Moist mucous membranes. The entire lower lip is swollen and edematous, but not painful to touch. The upper lips show very minimal edema. Intraoral no edema noted. No apparent difficulty swallowing. NECK: Normal range of motion, supple. LUNGS: Breath sounds clear and equal bilaterally. HEART: Regular rate and rhythm without murmurs. ABDOMEN: Soft, nontender. No guarding or rebound. BACK: No tenderness throughout entire back. EXTREMITIES: Normal range of motion without pain. NEUROLOGICAL: Normal speech, normal gait. Normal sensory, motor, and reflex exams. Awake, alert, and oriented x3. Cranial nerves normal. PSYCH: Normal mood, normal affect. SKIN: Warm, dry, no rashes. (RENNY SANCHEZ) Course - Re-evaluation Re-evalutation: 03/05/17 10:33 Upper lips appear to be normal and what ever swelling was there is gone. Her lower lip remains swollen, with ice pack being applied, though it has now melted , and appears as if there may be a slight improvement in the left side of the lower lip. No other symptoms or complaints. (RENNY SANCHEZ) 03/05/17 14:15 Patient care was turned over to me by Dr. Sanchez at 11 AM this morning. Patient has been watched for 3 hours and the lower lip swelling is essentially unchanged from that point. By history the upper lip had been some swelling that had resolved, and the lower lip had been more swollen earlier and had gotten better at that point. There is no swelling of the tongue and no swelling of the posterior pharynx. (CAROL SARAVIA) - Vital Signs Vital signs: Temp Pulse Resp BP Pulse Ox 98.4 F 84 20 151/87 H 96 03/05/17 08:56 03/05/17 08:56 03/05/17 13:16 03/05/17 13:16 03/05/17 13:16 Discharge - Discharge Clinical Impression: Angioedema Qualifiers: Encounter type: initial encounter Qualified Code(s): T78.3XXA - Angioneurotic edema, initial encounter Condition: Stable Disposition: HOME, SELF-CARE Additional Instructions: Angioedema Angioedema is an allergic swelling of the soft tissues of the body. The lips and mouth are most commonly involved. Medicication allergy is a common cause, especially MADDY inhibitor medicine (used for blood pressure control). Food, even something you've eaten frequently, can cause angioedema. In many cases it's not obvious what caused the swelling. Acute treatment may include adrenalin and antihistamines. If the cause is known, you must avoid this food or medicine in the future. If angioedema affects your air passages, it can be life-threatening. Return at once if you develop shortness of breath, faintness, severe pain, inability to swallow, or if swelling worsens.swelling worsens. //////////////////////////////////////////////////////////////////////////////// //////////////////////////////////////////////////////////////////////////////// /////////////////// Consider stopping the injection medication you are receiving every 2 weeks. We do not know what this medication is so we are unable to say whether it might be responsible. Given that you have had several of these reactions at some point after receiving that medication, and the medications that we can review are not known to cause angioedema, it would be prudent to stop the injection medication and find a suitable alternative in a different class of medications to see if this will stop these reactions. Follow-up with your primary care provider this week to discuss this medication that you are receiving as an injection every 2 weeks. RETURN TO THE EMERGENCY ROOM IF ANY NEW OR WORSENING SYMPTOMS. Referrals: MARK KHAN MD [Primary Care Provider] - Follow up in 3-5 days
[2017-03-05 15:08] VITALS: BP 156/105
== END 2017-03-05 15:11 | disposition home or self-care (01) ==
LOC: ER 08:50
DX: T78.3XXA Angioneurotic edema, initial encounter (principal); F31.9 Bipolar disorder, unspecified; F20.9 Schizophrenia, unspecified; I10 Essential (primary) hypertension; Z79.899 Other long term (current) drug therapy
CPT/HCPCS: 99283; 96372; 96374; 96375; J1200; J0171; J2930; S0028

== ENCOUNTER 2017-03-07 21:30 | Emergency (ER) | payer MEDICARE, OTHER ==
--- NOTE | 2017-03-07 22:29 | RADIOLOGY REPORT (SQ) ---
EXAM DESCRIPTION: CT HEAD WITHOUT COMPLETED DATE/TIME: 03/07/2017 9:57 pm REASON FOR STUDY: fall COMPARISON: None. TECHNIQUE: Axial images acquired through the brain without intravenous contrast. Images reviewed wi th bone, brain and subdural windows. Images stored on PACS. All CT scanners at this facility use dose modulation, iterative reconstruction, and/or weight based d osing when appropriate to reduce radiation dose to as low as reasonably achievable (ALARA). [facility]: Dose Right [facility]: CareDose [facility]: Dose Right [facility]: Teradose 4D [facility]: IM5 RADIATION DOSE: CT Rad equipment meets quality standard of care and radiation dose reduction techniq ues were employed. CTDIvol: 64.6 mGy. DLP: 1163 mGy-cm. mGy. LIMITATIONS: None. FINDINGS: VENTRICLES: Normal size and contour. CEREBRUM: No masses. No hemorrhage. No midline shift. No evidence for acute infarction. Normal gra y/white matter differentiation. No areas of low density in the white matter. CEREBELLUM: No masses. No hemorrhage. No alteration of density. No evidence for acute infarction. EXTRAAXIAL SPACES: No fluid collections. No masses. ORBITS AND GLOBE: No intra- or extraconal masses. Normal contour of globe without masses. CALVARIUM: No fracture. PARANASAL SINUSES: No fluid or mucosal thickening. SOFT TISSUES: Large right frontal scalp hematoma. OTHER: No other significant finding. IMPRESSION: No intracranial hemorrhage. Large right frontal scalp hematoma. EVIDENCE OF ACUTE STROKE: NO. COMMENT: Quality ID # [id number]: Final reports with documentation of one or more dose reduction techniques (e.g., Automated exposure control, adjustment of the mA and/or kV according to patient size, use of iterative reconstruction technique) TECHNICAL DOCUMENTATION: JOB ID: [id number] [id number] [employer]- All Rights Reserved
[2017-03-07] MEDS ORDERED: ACETAMINOPHEN 325 MG TABLET PO ONE (22:56)
--- NOTE | 2017-03-07 23:00 | ER Document Report ---
ED General - General Chief Complaint: Fall Stated Complaint: FALL,HIT HEAD Time Seen by Provider: 03/07/17 22:48 Notes: Patient is a 61-year-old female presents with complaint of a fall. Patient's caretakers in the room with her and gives the history. Patient slipped and hit her head. She has large hematoma over the right side of the top of her head and extends towards the forehead. CT scan was ordered in triage and came back is negative for any skull fractures or intracranial bleeding. No other injuries reported this time. Patient is on blood thinners. No other complaints at this time. TRAVEL OUTSIDE OF THE [place] IN LAST 30 DAYS: No - Related Data Allergies/Adverse Reactions: No Known Allergies Allergy (Verified 03/05/17 09:09) Past Medical History - Social History Smoking Status: Unknown if Ever Smoked Frequency of alcohol use: None Drug Abuse: None Family History: None Patient has suicidal ideation: No Patient has homicidal ideation: No - Past Medical History Cardiac Medical History: Reports: Hx Hypertension Renal/ Medical History: Denies: Hx Peritoneal Dialysis GI Medical History: Reports: Hx Gastroesophageal Reflux Disease, Hx Hepatitis - C Psychiatric Medical History: Reports: Hx Bipolar Disorder, Hx Depression, Hx Schizophrenia Infectious Medical History: Reports: Hx Hepatitis - C Past Surgical History: Reports: Hx Hysterectomy - Immunizations Hx Diphtheria, Pertussis, Tetanus Vaccination: Yes Review of Systems - Review of Systems Notes: My Normal Review Basic REVIEW OF SYSTEMS: CONSTITUTIONAL : Denies fever, chills, or sweats. Denies recent illness. EENT: Scalp hematoma. RESPIRATORY: Denies cough, cold, or chest congestion. Denies shortness of breath, difficulty breathing, or wheezing. GASTROINTESTINAL: Denies abdominal pain. Denies nausea, vomiting, or diarrhea. Denies constipation. Last BM: MUSCULOSKELETAL: Denies neck or back pain or joint pain or swelling. SKIN: Denies rash or skin lesions. HEMATOLOGIC : Denies easy bruising or bleeding.s. NEUROLOGICAL: Denies altered mental status or loss of consciousness. Has a headache. Denies weakness or paralysis or loss of use of either side. Denies problems with gait or speech. Denies sensory or motor loss. ALL OTHER SYSTEMS REVIEWED AND NEGATIVE. Physical Exam - Vital signs Vitals: Temp Pulse Resp BP Pulse Ox 98.4 F 96 18 169/96 H 98 03/07/17 21:45 03/07/17 21:45 03/07/17 21:45 03/07/17 21:45 03/07/17 21:45 - Notes Notes: General Appearance: Well nourished, alert, cooperative, no acute distress, no obvious discomfort. Well Appearing. Vitals: reviewed, See vital signs table. Head: Large Hematoma of the right side of her scalp that extends from parietal scalp to the forehead. Eyes: PERRL, EOMI, Conjuctiva clear Mouth: No decreasd moisture Throat: No tonsillar inflammation, No airway obstruction Neck: Supple, midline tenderness to palpation of the neck. Lungs: No wheezing, No rales, No rhonci, No accessory muscle use, good air exchange bilaterally. Heart: Normal rate, Regular rythm, No murmur, no rub Abdomen: Normal BS, soft, No rigidity, No abdominal tenderness, No guarding, no rebound, no abdominal masses, no organomegaly Back: No pain to palpation of the thoracic or lumbar spine. No step-offs or deformities. Extremities: strength 5/5 in all extremities, good pulses in all extremities, range of motion of all extremities without tenderness. Patient does have a few skin tears over the knuckles of her left hand. Her hand is kept in the flex contracture position which her [employer] says is chronic for her. This is stable without tenderness. Skin: warm, dry, appropriate color, no rash Neuro: , normal affect. Cranial nerves II through XII are intact. She follows commands appropriately. She is able to move all 4 extremities without difficulty. Course - Re-evaluation Re-evalutation: 03/07/17 23:05 Patient is a very large scalp hematoma. She is not on blood thinners. I talked to her [employer] about applying ice packs and given Tylenol for pain. I told her not to give Motrin or aspirin. I will have her follow-up with the surgical clinic in a few days as she may eventually need a clot evacuation to help prevent skin necrosis. I did explain this to the [employer] and she is understanding of this. I encouraged her to return to ER immediately if she has severe headache, vomiting, or feels unwell. Patient and [employer] agree with plan and patient will be discharged home. Dictation of this chart was performed using voice recognition software; therefore, there may be some unintended grammatical errors. - Vital Signs Vital signs: Temp Pulse Resp BP Pulse Ox 98.4 F 96 18 169/96 H 98 03/07/17 21:45 03/07/17 21:45 03/07/17 21:45 03/07/17 21:45 03/07/17 21:45 Discharge - Discharge Clinical Impression: Hematoma of scalp Qualifiers: Encounter type: initial encounter Qualified Code(s): S00.03XA - Contusion of scalp, initial encounter Condition: Good Disposition: HOME, SELF-CARE Additional Instructions: The CT scan just shows the hematoma on the outside of the scalp. There is not a skull fracture or bleeding on the brain. Treatment at this point is Tylenol and ice packs. Please follow up with the surgery clinic for reevaluation as you may eventually need a clot evacuation if the hematoma is not improving on its own. Call the office in the AM for a close follow up appointment within 2-3 days. Please return to the ER immediately if Mrs. German has vomiting, severe headache, or break down of the skin on the scalp. Please apply ice packs for 20 minutes at a time with breaks of at least 20 minutes. Referrals: STEVE WILSON MD [ACTIVE STAFF] - 03/09/17
[2017-03-07 23:46] VITALS: BP 171/86
== END 2017-03-07 23:42 | disposition home or self-care (01) ==
LOC: ER 21:30
DX: S00.03XA Contusion of scalp, initial encounter (principal); W01.0XXA Fall on same level from slipping, tripping and stumbling without subsequent striking against object, initial encounter; I10 Essential (primary) hypertension
CPT/HCPCS: 99283; 70450; A9270

== ENCOUNTER → 2017-04-02 | Outpatient (CLI) | payer MEDICARE, OTHER ==
--- NOTE | 2017-04-02 15:40 | RADIOLOGY REPORT (SQ) ---
EXAM DESCRIPTION: CT HEAD WITHOUT COMPLETED DATE/TIME: 04/02/2017 3:27 pm REASON FOR STUDY: H54.7 UNSPECIFIED VISUAL LOSS S00.03XA CONTUSION OF SCALP, INITIAL ENCOUNTE H54.7 UNSPECIFIED VISUAL LOSS S00.03XA CONTUSION OF SCALP, INITIAL ENCOUNTER Z91.81 HISTORY OF FALLING COMPARISON: CT brain 03/07/2017 TECHNIQUE: Axial images acquired through the brain without intravenous contrast. Images reviewed wi th bone, brain and subdural windows. Images stored on PACS. All CT scanners at this facility use dose modulation, iterative reconstruction, and/or weight based d osing when appropriate to reduce radiation dose to as low as reasonably achievable (ALARA). [facility]: Dose Right [facility]: CareDose [facility]: Dose Right [facility]: Teradose 4D [facility]: American Efficient RADIATION DOSE: CT Rad equipment meets quality standard of care and radiation dose reduction techniq ues were employed. CTDIvol: 49.0 mGy. DLP: 979 mGy-cm. mGy. LIMITATIONS: None. FINDINGS: VENTRICLES: Normal size and contour. CEREBRUM: No masses. No hemorrhage. No midline shift. No evidence for acute infarction. Normal gra y/white matter differentiation. No areas of low density in the white matter. CEREBELLUM: No masses. No hemorrhage. No alteration of density. No evidence for acute infarction. EXTRAAXIAL SPACES: No fluid collections. No masses. ORBITS AND GLOBE: No intra- or extraconal masses. Normal contour of globe without masses. CALVARIUM: No fracture. PARANASAL SINUSES: No fluid or mucosal thickening. SOFT TISSUES: There is a large right frontal scalp hematoma measuring about 9 by 2.5 cm in size, yissel lar compared to CT brain exam 03/07/2017. OTHER: No other significant finding. IMPRESSION: Large stable right frontal scalp hematoma. No acute intracranial changes EVIDENCE OF ACUTE STROKE: NO. COMMENT: Quality ID # [id number]: Final reports with documentation of one or more dose reduction techniques (e.g., Automated exposure control, adjustment of the mA and/or kV according to patient size, use of iterative reconstruction technique) TECHNICAL DOCUMENTATION: JOB ID: [id number] [email or web address]- All Rights Reserved
== END ==
LOC: RAD 15:51
PROVIDERS: ATTEND Physician Assistant Surgical
DX: S00.03XA Contusion of scalp, initial encounter (principal); Z91.81 History of falling; H54.7 Unspecified visual loss
CPT/HCPCS: 70450

== ENCOUNTER → 2017-04-24 | Outpatient (CLI) | payer MEDICARE, OTHER ==
--- NOTE | 2017-04-24 16:31 | WOMENS IMAGING REPORT ---
EXAM DESCRIPTION: BILAT SCREENING MAMMO W/CAD COMPLETED DATE/TIME: 04/24/2017 2:51 pm REASON FOR STUDY: SCREENING MAMMO Z12.31 ENCNTR SCREEN MAMMOGRAM FOR MALIGNANT NEOPLASM OF KYLIE COMPARISON: None. TECHNIQUE: Standard craniocaudal and mediolateral oblique views of each breast recorded using digita l acquisition. LIMITATIONS: None. FINDINGS: No masses, calcifications or architectural distortion. No areas of suspicion. Read with the assistance of CAD. .[facility] - R2 Cenova Version 1.3 .[facility] Imaging - R2 Cenova Version 1.3 .[facility] - R2 Cenova Version 2.4 .[facility] [place] R2 Cenova Version 2.4 .[facility] - R2 Clinical Nursing Intern Version 9.2 IMPRESSION: NORMAL MAMMOGRAM. BIRADS 1. BREAST DENSITY: b. There are scattered areas of fibroglandular density. BIRAD: 1 NEGATIVE RECOMMENDATION: ROUTINE SCREENING COMMENT: The patient has been notified of the results by letter per SA requirements. Additional no tification policies are in place for contacting patient with suspicious or incomplete findings. Quality ID #[id number]: The [employer] recommends an annual screening mammogram for women aged 40 years or over. This facility utilizes a reminder system to ensure that all patients receive reminder letters, and/or direct phone calls for appointments. This includes reminders for routine scr eening mammograms, diagnostic mammograms, or other Breast Imaging Interventions when appropriate. Th is patient will be placed in the appropriate reminder system. The [employer] (ACR) has developed recommendations for screening MRI of the breast s in certain patient populations, to be used in conjunction with mammography. Breast MRI surveillanc e may be appropriate for women with more than 20% lifetime risk of developing breast cancer as deter mined by genetic testing, significant family history of the disease, or history of mantle radiation f or Hodgkins Disease. ACR Practice Guidelines 2008. TECHNICAL DOCUMENTATION: FINDING NUMBER: (1) ASSESSMENT: (1) JOB ID: [id number] [employer]- All Rights Reserved
== END ==
LOC: WI 14:28
PROVIDERS: ATTEND Internal Medicine
DX: Z12.31 Encounter for screening mammogram for malignant neoplasm of breast (principal)
CPT/HCPCS: 77067

== ENCOUNTER 2017-06-20 19:07 | Emergency (ER) | payer MEDICARE, OTHER ==
[2017-06-20] MEDS ORDERED: METHYLPREDNISOLONE INJ 125 MG/2 ML SDV IV ONE (19:21)
[2017-06-20] MEDS ORDERED: DIPHENHYDRAMINE HCL 50 MG/ML VIAL IV ONE (19:21)
[2017-06-20] MEDS ORDERED: EPINEPHRINE INJ/PF 1 MG/1 ML AMPULE IM ONE (19:40)
[2017-06-20 22:32] VITALS: BP 115/73
--- NOTE | 2017-06-20 22:37 | ER Document Report ---
ED Allergic Reaction - General Chief Complaint: Allergic Reaction Stated Complaint: POSSIBLE ALLERGIC REACTION Time Seen by Provider: 06/20/17 19:40 Mode of Arrival: Stretcher Information source: Legal Guardian TRAVEL OUTSIDE OF THE [place] IN LAST 30 DAYS: No - HPI Patient complains to provider of: Angioedema Onset: This evening Onset/Duration: Gradual Quality of pain: No pain Trouble swallowing / speaking: Mild Similar symptoms previously: Yes Notes: Patient is a 62-year-old female brought to the emergency room by legal guardian for complaints of angioedema, patient has tongue swelling that developed a few hours prior to arrival, has a history of this at least 4 times in the past, she was started on Norvasc and Haldol recently, otherwise no new medications, no difficulty breathing, slight difficulty swallowing, tongue is enlarged on evaluation - Related Data Allergies/Adverse Reactions: No Known Allergies Allergy (Verified 06/20/17 19:09) Past Medical History - General Information source: Legal Guardian - Social History Smoking Status: Never Smoker Family History: None Patient has suicidal ideation: No Patient has homicidal ideation: No - Past Medical History Cardiac Medical History: Reports: Hx Hypertension Renal/ Medical History: Denies: Hx Peritoneal Dialysis GI Medical History: Reports: Hx Gastroesophageal Reflux Disease, Hx Hepatitis - C Psychiatric Medical History: Reports: Hx Bipolar Disorder, Hx Depression, Hx Schizophrenia Infectious Medical History: Reports: Hx Hepatitis - C Past Surgical History: Reports: Hx Hysterectomy - Immunizations Hx Diphtheria, Pertussis, Tetanus Vaccination: Yes Review of Systems - Review of Systems Constitutional: No symptoms reported EENT: See HPI Cardiovascular: No symptoms reported Respiratory: No symptoms reported Gastrointestinal: No symptoms reported Genitourinary: No symptoms reported Female Genitourinary: No symptoms reported Musculoskeletal: No symptoms reported Skin: No symptoms reported Hematologic/Lymphatic: No symptoms reported Neurological/Psychological: No symptoms reported -: Yes All other systems reviewed and negative Physical Exam - Vital signs Vitals: Temp Pulse Resp BP Pulse Ox 98.3 F 103 H 22 H 131/87 H 97 06/20/17 19:12 06/20/17 19:12 06/20/17 19:12 06/20/17 19:12 06/20/17 19:12 Interpretation: Normal - General General appearance: Appears well, Alert - HEENT Head: Normocephalic, Atraumatic Eyes: Normal Conjunctiva: Normal Extraocular movements intact: Yes Eyelashes: Normal Pupils: PERRL Mouth/Lips: Angioedema - Tongue is moderately swollen, airway is patent, no uvula edema, no perioral edema Mucous membranes: Moist - Respiratory Respiratory status: No respiratory distress Chest status: Nontender Breath sounds: Normal Chest palpation: Normal - Cardiovascular Rhythm: Regular Heart sounds: Normal auscultation Murmur: No - Abdominal Inspection: Normal Distension: No distension Bowel sounds: Normal Tenderness: Nontender Organomegaly: No organomegaly - Back Back: Normal, Nontender - Extremities General upper extremity: Normal inspection, Nontender, Normal color, Normal ROM , Normal temperature General lower extremity: Normal inspection, Nontender, Normal color, Normal ROM , Normal temperature, Normal weight bearing. No: Bk's sign - Neurological Neuro grossly intact: Yes Cognition: Normal Orientation: AAOx4 Bernard Coma Scale Eye Opening: Spontaneous Bernard Coma Scale Verbal: Oriented Bernard Coma Scale Motor: Obeys Commands Wallace Coma Scale Total: 15 Speech: Normal Motor strength normal: LUE, RUE, LLE, RLE Sensory: Normal - Psychological Associated symptoms: Normal affect, Normal mood - Skin Skin Temperature: Warm Skin Moisture: Dry Skin Color: Normal Course - Re-evaluation Re-evalutation: 06/20/17 23:50 Patient received IV Benadryl, IV fluids, Solu-Medrol and intramuscular epinephrine, she rapidly improved in the emergency department, tongue swelling is significantly, airway is patent, lungs sounds are clear to auscultation, legal guardian at bedside who is patient's caregiver reports that she usually improves after medications, on one occasion was admitted overnight but required no further intervention, she is comfortable taking patient home and she will be there with her 24 hours a day and ensure that she does not have any further worsening of symptoms, agrees to return patient to the ER if she does, patient also reports feeling much better, her speech is now coherent enough to understand, therefore she was discharged home with prescriptions for medications to control her symptoms, and advised to return if any worsening, patient and caregiver acknowledge understanding and agreement with the plan - Vital Signs Vital signs: Temp Pulse Resp BP Pulse Ox 98.3 F 103 H 23 H 115/73 99 06/20/17 19:12 06/20/17 19:12 06/20/17 22:30 06/20/17 22:30 06/20/17 22:30 Discharge - Discharge Clinical Impression: Angioedema Qualifiers: Encounter type: initial encounter Qualified Code(s): T78.3XXA - Angioneurotic edema, initial encounter Condition: Stable Disposition: HOME, SELF-CARE Instructions: Angioedema ([facility]) Additional Instructions: Follow up with your primary care provider in one to 2 days. Return to the emergency room immediately if symptoms worsen or any additional concerns. Prescriptions: Diphenhydramine HCl [Benadryl 25 Mg Capsule] 25 mg PO Q6 #30 capsule Epinephrine [Epipen 2-Patricio] 0.3 mg IM ONCE PRN #1 ml PRN Reason: Prednisone 40 mg PO DAILY #8 tablet Referrals: MARK KHAN MD [Primary Care Provider] - Follow up as needed
--- NOTE | 2017-06-21 07:40 | EKG REPORT ---
SEVERITY:- ABNORMAL ECG - SINUS RHYTHM NONSPECIFIC T ABNORMALITIES, ANT-LAT LEADS : Confirmed by: Jean Buitrago MD 21-Jun-2017 07:40:02
== END 2017-06-20 23:00 | disposition home or self-care (01) ==
LOC: ER 19:07
DX: T78.3XXA Angioneurotic edema, initial encounter (principal); I10 Essential (primary) hypertension; F20.9 Schizophrenia, unspecified
CPT/HCPCS: 93005; 99282; 96372; 96374; 96375; 93010; J1200; J0171; J2930

== ENCOUNTER 2017-10-20 16:27 | Emergency (ER) | payer MEDICARE ==
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
[2017-10-20 18:22] LABS: ABSOLUTE BASOPHILS # (AUTO) 0.1 10^3/uL (0.0-0.2); ABSOLUTE EOSINOPHILS # (AUTO) 0.1 10^3/uL (0.0-0.6); ABSOLUTE LYMPHOCYTES (AUTO) 3.1 10^3/uL (0.5-4.7); ABSOLUTE MONOCYTES (AUTO) 0.4 10^3/uL (0.1-1.4); ABSOLUTE NEUT (AUTO) 3.2 10^3/uL (1.7-8.2); BASOPHILS % (AUTO) 1.1 % (0-2); EOSINOPHILS % (AUTO) 0.9 % (0-6); HEMATOCRIT 35.6 % (36.0-47.0); HEMOGLOBIN 11.6 g/dL (12.0-15.5); LYMPHOCYTES % (AUTO) 45.3 % (13-45); MEAN CORPUSCULAR HGB CONC 32.5 g/dL (32.0-36.0); MEAN CORPUSCULAR VOLUME 89 fl (80-97); MONOCYTES % (AUTO) 6.4 % (3-13); PLATELET COUNT 212 10^3/uL (150-450); RED BLOOD COUNT 3.99 10^6/uL (3.72-5.28); RED CELL DISTRIBUTION WIDTH 14.2 % (11.5-14.0); SEGMENTED NEUTROPHILS % (AUTO) 46.3 % (42-78); TOTAL CELLS COUNTED % (AUTO) 100 %; WHITE BLOOD COUNT 6.9 10^3/uL (4.0-10.5)
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
[2017-10-20 18:36] LABS: ALANINE AMINOTRANSFERASE 30 U/L (9-52); ALBUMIN 3.9 g/dL (3.5-5.0); ALKALINE PHOSPHATASE 46 U/L (38-126); ANION GAP 11 (5-19); ASPARTATE AMINO TRANSFERASE 33 U/L (14-36); BILIRUBIN,DIRECT 0.3 mg/dL (0.0-0.4); BILIRUBIN,TOTAL 0.5 mg/dL (0.2-1.3); BLOOD UREA NITROGEN 14 mg/dL (7-20); CALCIUM 9.7 mg/dL (8.4-10.2); CARBON DIOXIDE 27 mmol/L (22-30); CHLORIDE 106 mmol/L (98-107); GLUCOSE 87 mg/dL (75-110); POTASSIUM 4.1 mmol/L (3.6-5.0); SODIUM 144.3 mmol/L (137-145); TOTAL PROTEIN 7.4 g/dL (6.3-8.2)
[2017-10-20 18:38] LABS: ALCOHOL < 10 mg/dL (NONE DETECTED)
[2017-10-20 18:51] LABS: APPEARANCE,URINE SLIGHTLY-CLOUDY; BILIRUBIN,URINE NEGATIVE (NEGATIVE); COLOR,URINE AMBER; GLUCOSE, URINE NEGATIVE (NEGATIVE); KETONES,URINE NEGATIVE (NEGATIVE); LEUKOCYTE ESTERASE,URINE SMALL (NEGATIVE); NITRITE,URINE NEGATIVE (NEGATIVE); PROTEIN,URINE NEGATIVE (NEGATIVE); URINE SPECIFIC GRAVITY 1.026
[2017-10-20 19:10] LABS: URINE AMPHETAMINES SCREEN NEGATIVE; URINE BARBITURATES SCREEN NEGATIVE; URINE BENZODIAZEPINES SCREEN NEGATIVE; URINE COCAINE SCREEN NEGATIVE; URINE MARIJUANA (THC) SCREEN NEGATIVE; URINE METHADONE SCREEN NEGATIVE; URINE PHENCYCLIDINE SCREEN NEGATIVE
[2017-10-20 19:52] LABS: ACETAMINOPHEN < 10 ug/mL (10-30); SALICYLATE < 1.0 mg/dL (2.0-20.0)
--- NOTE | 2017-10-21 10:03 | ER Document Report ---
Doctor's Note Notes: 10/21/17 09:56 Rounds: Chart reviewed and patient interviewed. Patient being evaluated for history of schizophrenia and bipolar disorders with being mentally challenged. She had aggressive and agitated behavior, bizarre behavior and hallucinations. Lab studies were all normal. Vital signs are all normal. Patient appears to be medically stable for transfer or discharge. Jeanie Rachel MD
[2017-10-21 18:04] VITALS: BP 159/80
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
== END 2017-10-21 18:05 | disposition home or self-care (01) ==
LOC: ER 16:27
DX: F20.9 Schizophrenia, unspecified (principal); R45.850 Homicidal ideations; I10 Essential (primary) hypertension; R00.1 Bradycardia, unspecified; Z79.899 Other long term (current) drug therapy
CPT/HCPCS: 36415; 80053; 80307; 81001; 84443; 85025; 99284

== ENCOUNTER 2018-01-17 09:15 | Day surgery (SDC) | payer MEDICARE, OTHER ==
[~2018-01-17 09:15] MED LIST: CHONDR SU A NA/HYALUR INTRAOC KIT (SURGICARE) ONE; DORZOLAMIDE HCL 2%/TIMOLOL MALEAT 0.5% OPH SOLN 10 ML ONE; EPINEPHRINE INJ/PF 1 MG/1 ML AMPULE ONE; KETOROLAC TROMETHAMINE 0.45% 4 DROP/0.4 ML DROPERETTE OS PRN; LIDOCAINE 1% INJ-PF (10 MG/ML) 30 ML SDV ONE
[2018-01-17] MEDS: TETRACAINE HCL 0.5% OPH SOLN 4 ML OS PRN ×4 (09:54→10:21)
[2018-01-17] MEDS: TROPICAMIDE 1% OPH SOLN 3 ML OS PRN ×3 (09:55→10:17)
[2018-01-17] MEDS: CYCLOPENTOLATE 0.2%/PHENYLEPHRINE 1% OPH SOLN 2 ML OS PRN ×3 (09:55→10:17)
[2018-01-17] MEDS: BESIFLOXACIN HCL 0.6% OPH SUSP 5 ML BOTTLE OS PRN ×3 (09:55→11:00)
[2018-01-17] MEDS ORDERED: MIDAZOLAM 2 MG/2 ML INJ ONE (10:06)
--- NOTE | 2018-01-18 11:26 | [facility] DISCHARGE SUMMARY E ---
[facility] Discharge Summary NAME: RIDDHI FORTUNE AGE: 62Y ADMITTED: 01/17/2018 DISCHARGED: 01/17/2018 FINAL DIAGNOSIS: CATARACT, LEFT EYE. SUMMARY: This is a 62-year-old who underwent cataract extraction, left eye. She underwent surgery because she was having difficulty seeing small print. DISCHARGE INSTRUCTIONS: She should be on a regular diet, no bending at her waist, and no heavy lifting. She should use her Besivance, Ilevro, and Durezol at 3 p.m. and 8 p.m. and sleep with a rigid shield. I will see her for her 1-day postoperative tomorrow. DICTATING PHYSICIAN: LISA JOHNSON M.D. [id number] PHY#: [id number] ID: [id number] JOB#: [id number] ACCT: [id number] cc:LISA JOHNSON M.D. >
--- NOTE | 2018-01-18 11:27 | [facility] OPERATIVE REPORT E ---
[facility] Operative Report NAME: RIDDHI FORTUNE AGE: 62Y DATE OF SURGERY: 01/17/2018 ROOM: PREOPERATIVE DIAGNOSIS: CATARACT, LEFT EYE. POSTOPERATIVE DIAGNOSIS: CATARACT, LEFT EYE. OPERATION: Cataract extraction with insertion of an IOL of the left eye. SURGEON: LISA JOHNSON M.D. ANESTHESIA: Topical. PROCEDURE: After obtaining appropriate consent, the patient's left eye was prepped and draped in sterile fashion as well as the surgeon in a sterile manner and cataract surgery was started. First a paracentesis blade was used to make a side-port incision. Viscoelastic was used to inflate the anterior chamber. Next a 2.4 mm incision was made with a 2.4 mm blade, clear corneal temporally. A continuous capsulorrhexis was made using a cystotome and Utrata forceps. Following this hydrodissection was carried out to make the lens fully loose and mobile and it was rotated 90 degrees. Following this, a clpwjv-dot-wkqdyuf technique was used to phacoemulsify the lens with a CDE of 6.21. The remaining cortex was removed with irrigation/aspiration. Provisc was instilled into the capsular bag to inflate the bag. A SN60WF, 18.0 diopter lens was placed. The remaining viscoelastic material was removed with irrigation/aspiration. Following this, the incision was found to be watertight. Besivance was instilled into the eye and a protective shield was placed over the eye. The patient returned to the postoperative recovery in stable condition. DICTATING PHYSICIAN: LISA JOHNSON M.D. [id number] [id number] PHY#: [id number] ID: [id number] JOB#: [id number] ACCT: [id number] cc:LISA JOHNSON M.D. >
== END 2018-01-17 11:41 | disposition home or self-care (01) ==
LOC: SC 09:15
PROVIDERS: ATTEND Internal Medicine
DX: H40.1133 Primary open-angle glaucoma, bilateral, severe stage (principal); H25.813 Combined forms of age-related cataract, bilateral; K21.9 Gastro-esophageal reflux disease without esophagitis; I10 Essential (primary) hypertension; Z79.899 Other long term (current) drug therapy; Z88.8 Allergy status to other drugs, medicaments and biological substances
CPT/HCPCS: 66984; V2632; J2250; J3490 ×3; A9270; J0171; 142

== ENCOUNTER 2018-02-07 10:02 | Day surgery (SDC) | payer MEDICARE, OTHER ==
[~2018-02-07 10:02] MED LIST changes: -CHONDR SU A NA/HYALUR INTRAOC KIT (SURGICARE) ONE; -DORZOLAMIDE HCL 2%/TIMOLOL MALEAT 0.5% OPH SOLN 10 ML ONE; -EPINEPHRINE INJ/PF 1 MG/1 ML AMPULE ONE; +KETOROLAC TROMETHAMINE 0.45% 4 DROP/0.4 ML DROPERETTE OD PRN; -KETOROLAC TROMETHAMINE 0.45% 4 DROP/0.4 ML DROPERETTE OS PRN; -LIDOCAINE 1% INJ-PF (10 MG/ML) 30 ML SDV ONE
[2018-02-07] MEDS: TETRACAINE HCL 0.5% OPH SOLN 4 ML OD PRN ×4 (10:47→11:16)
[2018-02-07] MEDS: BESIFLOXACIN HCL 0.6% OPH SUSP 5 ML BOTTLE OD PRN ×4 (10:48→11:35)
[2018-02-07] MEDS: CYCLOPENTOLATE 0.2%/PHENYLEPHRINE 1% OPH SOLN 2 ML OD PRN ×3 (10:48→11:02)
[2018-02-07] MEDS: TROPICAMIDE 1% OPH SOLN 3 ML OD PRN ×3 (10:48→11:02)
[2018-02-07] MEDS ORDERED: MIDAZOLAM 2 MG/2 ML INJ ONE (11:13)
[2018-02-07] MEDS: EPINEPHRINE INJ/PF 1 MG/1 ML AMPULE ONE ×2 (11:24)
[2018-02-07] MEDS: LIDOCAINE 1% INJ-PF (10 MG/ML) 30 ML SDV ONE ×2 (11:24)
[2018-02-07] MEDS: CHONDR SU A NA/HYALUR INTRAOC KIT (SURGICARE) ONE ×2 (11:24)
--- NOTE | 2018-02-07 19:26 | [facility] DISCHARGE SUMMARY E ---
[facility] Discharge Summary NAME: RIDDHI FORTUNE AGE: 62Y ADMITTED: 02/07/2018 DISCHARGED: 02/07/2018 HOSPITAL COURSE: This is a 62-year-old female who underwent cataract extraction of the right eye. DIAGNOSIS: CATARACT, RIGHT EYE. She underwent surgery because she was having trouble seeing road signs and the TV out of her right eye. DISCHARGE INSTRUCTIONS: She should be on a regular diet. No bending at her waist, no heavy lifting. She should use Durezol, PROLENSA, and Besivance at 3 p.m. and 8 p.m. and sleep with a rigid shield. I will see her for her 1 day postoperative tomorrow. DICTATING PHYSICIAN: LISA JOHNSON M.D. [id number] PHY#: [id number] ID: [id number] JOB#: [id number] ACCT: [id number] cc:LISA JOHNSON M.D. >
--- NOTE | 2018-02-07 19:27 | [facility] OPERATIVE REPORT E ---
[facility] Operative Report NAME: RIDDHI FORTUNE AGE: 62Y DATE OF SURGERY: 02/07/2018 ROOM: PREOPERATIVE DIAGNOSIS: CATARACT, RIGHT EYE. POSTOPERATIVE DIAGNOSIS: CATARACT, RIGHT EYE. OPERATION: Cataract extraction with insertion of an IOL of the right eye. SURGEON: LISA JOHNSON M.D. ANESTHESIA: Topical. PROCEDURE: After obtaining appropriate consent, the patient's right eye was prepped and draped in sterile fashion as well as the surgeon in a sterile manner and cataract surgery was started. First a paracentesis blade was used to make a side-port incision. Viscoelastic was used to inflate the anterior chamber. Next a 2.4 mm incision was made with a 2.4 mm blade, clear corneal temporally. A continuous capsulorrhexis was made using a cystotome and Utrata forceps. Following this hydrodissection was carried out to make the lens fully loose and mobile and it was rotated 90 degrees. Following this, a psdjpa-sqt-chbqrob technique was used to phacoemulsify the lens with a CDE of 9.32. The remaining cortex was removed with irrigation/aspiration. Provisc was instilled into the capsular bag to inflate the bag. A SN60WF, 18.5 diopter lens was placed. The remaining viscoelastic material was removed with irrigation/aspiration. Following this, the incision was found to be watertight. Besivance was instilled into the eye and a protective shield was placed over the eye. The patient returned to the postoperative recovery in stable condition. DICTATING PHYSICIAN: LISA JOHNSON M.D. [id number] PHY#: [id number] ID: [id number] JOB#: [id number] ACCT: [id number] cc:LISA JOHNSON M.D. >
== END 2018-02-07 12:16 | disposition home or self-care (01) ==
LOC: SC 10:02
PROVIDERS: ATTEND Internal Medicine
DX: H25.811 Combined forms of age-related cataract, right eye (principal)
CPT/HCPCS: 66984; V2632; J2250; J3490 ×4; J0171; 142